=== PATIENT | female | born 1960 | race Caucasian/White ===

== ENCOUNTER → 2017-06-07 | Outpatient (CLI) | payer MEDICARE, OTHER ==
[~2017-06-07] MED LIST: Clonazepam0.125 MG; GLIP10 PO; LISI20 PO; MONISTAT 744 GM TOP; Metformin HCl1000 MG PO; OMEPRAZOLE DR 20 MG
[2017-06-09 12:29] LABS: HPV Genotype 16 Not Detected (NOTDET); HPV Genotype 18 Not Detected (NOTDET)
[2017-06-16 11:49] LABS: HPV High Risk Other Not Detected (NOTDET)
== END | disposition home or self-care (01) ==
LOC: PLD 13:04
PROVIDERS: Obstetrics & Gynecology Gynecology
DX: D07.1 Carcinoma in situ of vulva (principal)
CPT/HCPCS: 87624; 88142; 88305

== ENCOUNTER → 2017-12-18 | Outpatient (CLI) | payer MEDICARE ==
[2017-12-20 15:08] LABS: HPV 16 Negative (Negative); HPV 18 Negative (Negative); HPV OTHER HR TYPES Negative (Negative)
== END | disposition home or self-care (01) ==
LOC: LAB 19:07 → LAB SHORT 19:07
PROVIDERS: Obstetrics & Gynecology Gynecology
DX: Z12.72 Encounter for screening for malignant neoplasm of vagina (principal)
CPT/HCPCS: 87624; G0123

== ENCOUNTER → 2019-02-04 | Outpatient (CLI) | payer MEDICARE, OTHER ==
[2019-02-06 15:07] LABS: HPV 16 Negative (Negative); HPV 18 Negative (Negative); HPV OTHER HR TYPES Negative (Negative)
== END | disposition home or self-care (01) ==
LOC: LAB SHORT 19:14 → LAB 19:14
PROVIDERS: Obstetrics & Gynecology Gynecology
DX: Z12.72 Encounter for screening for malignant neoplasm of vagina (principal)
CPT/HCPCS: 87624; G0123

== ENCOUNTER → 2019-05-21 | Outpatient (CLI) | payer MEDICARE, OTHER ==
[2019-05-23 23:06] LABS: CHLAMYDIA TRACHOMATIS, NAA Negative (Negative); NEISSERIA GONORRHOEAE, NAA Negative (Negative)
== END | disposition home or self-care (01) ==
LOC: LAB EV 13:43 → LAB SHORT 13:43
PROVIDERS: Physician Assistant
DX: R10.2 Pelvic and perineal pain (principal)
CPT/HCPCS: 87070; 87106; 87205; 87491; 87591

== ENCOUNTER → 2019-08-15 | Outpatient (CLI) | payer MEDICARE, OTHER | END | disposition home or self-care (01) | LOC: LAB 19:39 → LAB SHORT 19:39 | DX: R22.42 Localized swelling, mass and lump, left lower limb (principal) | CPT/HCPCS: 84550 ==

== ENCOUNTER 2022-04-02 17:42 | Inpatient (IN) | payer OTHER, MEDICARE ==
[~2022-04-02] VITALS: Ht 167.6 cm; Wt 83.2 kg
[~2022-04-02 17:42] MED LIST changes: +OMEP20ER PO; -OMEPRAZOLE DR 20 MG
[2022-04-02 19:54] LABS: BASOPHILS ABSOLUTE AUTO 0.04 K/mm3 (0.00-0.23); BASOPHILS PERCENT AUTO 1 % (0-2); EOSINOPHILS ABSOLUTE AUTO 0.05 K/mm3 (0.00-0.68); EOSINOPHILS PERCENT AUTO 1 % (0-6); Hematocrit 31.2 % (33.0-51.0); Hemoglobin 10.8 g/dL (11.5-16.0); IMMATURE GRAN ABSOLUTE AUTO 0.03 K/mm3 (0.00-0.10); IMMATURE GRAN PERCENT AUTO 0 % (0-1); LYMPHOCYTES ABSOLUTE AUTO 1.02 K/mm3 (0.84-5.20); LYMPHOCYTES PERCENT AUTO 13 % (21-46); MONOCYTES ABSOLUTE AUTO 0.42 K/mm3 (0.16-1.47); MONOCYTES PERCENT AUTO 6 % (4-13); Mean Corpuscular HGB 31.9 pg (26.0-34.0); Mean Corpuscular HGB Conc 34.6 g/dL (31.5-36.5); Mean Corpuscular Volume 92 fL (80-100); Mean Platelet Volume 11.6 fL (9.1-12.4); NEUTROPHILS ABSOLUTE AUTO 6.08 K/mm3 (1.96-9.15); NEUTROPHILS PERCENT AUTO 80 % (41-73); Platelet Count 199 K/mm3 (150-400); RDW Standard Deviation 43.3 fL (35.1-46.3); Red Blood Cell Count 3.39 M/mm3 (3.80-5.20); White Blood Cell Count 7.64 K/mm3 (4.00-11.30)
[2022-04-02 20:03] LABS: Source, Urine Foley catheter
[2022-04-02 20:08] LABS: International Normalized Ratio 0.98; Prothrombin Time Results 10.3 Sec (9.7-11.5)
[2022-04-02 20:10] LABS: Bilirubin, Urine Neg (Neg); Blood, Urine Neg (Neg); Glucose Qualitative, Urine 4+ (Neg); Ketones, Urine Neg (Neg); Leukocyte Esterase, Urine Neg (Neg); Nitrite, Urine Neg (Neg); Protein, Urine Neg (Neg); Specific Gravity, Urine 1.015 (1.003-1.022); Urobilinogen, Urine NORM (Normal)
[2022-04-02 20:22] LABS: Albumin, Blood 3.2 g/dL (3.4-5.0); Albumin/Globulin Ratio 1.1 (0.8-1.8); Bilirubin, Total 0.3 mg/dL (0.1-1.0); Bun/Creatinine Ratio 20.9 (12.0-20.0); Calcium, Blood 8.9 mg/dL (8.5-10.1); Creatinine, Blood 0.86 mg/dL (0.40-1.00); Potassium, Blood 4.7 mmol/L (3.5-5.5); Total Protein, Blood 6.2 g/dL (6.4-8.2)
[2022-04-02 20:22] LABS: Appearance, Urine Clear (Clear); Color, Urine Pale Yellow (P-Yellow)
--- NOTE | 2022-04-02 21:27 | NUR ---
ADMIT PT ARRIVED 2054 4 PER SLIDE TO BED. ADMITTED FOR R HIP FX. 04/08 PAIN IN HIP RAIDIATING TO KNEE, INFORMED MD & HE ORDERED FENTANYL. ORIENTED TO CALL LIGHT & RM
[2022-04-03 05:28] LABS: BASOPHILS ABSOLUTE AUTO 0.03 K/mm3 (0.00-0.23); BASOPHILS PERCENT AUTO 0 % (0-2); EOSINOPHILS ABSOLUTE AUTO 0.01 K/mm3 (0.00-0.68); EOSINOPHILS PERCENT AUTO 0 % (0-6); Hematocrit 29.2 % (33.0-51.0); Hemoglobin 9.8 g/dL (11.5-16.0); IMMATURE GRAN ABSOLUTE AUTO 0.02 K/mm3 (0.00-0.10); IMMATURE GRAN PERCENT AUTO 0 % (0-1); LYMPHOCYTES ABSOLUTE AUTO 2.03 K/mm3 (0.84-5.20); LYMPHOCYTES PERCENT AUTO 27 % (21-46); MONOCYTES ABSOLUTE AUTO 0.69 K/mm3 (0.16-1.47); MONOCYTES PERCENT AUTO 9 % (4-13); Mean Corpuscular HGB 31.1 pg (26.0-34.0); Mean Corpuscular HGB Conc 33.6 g/dL (31.5-36.5); Mean Corpuscular Volume 93 fL (80-100); NEUTROPHILS ABSOLUTE AUTO 4.78 K/mm3 (1.96-9.15); NEUTROPHILS PERCENT AUTO 63 % (41-73); Platelet Count 181 K/mm3 (150-400); RDW Coefficient Variation 13.2 % (11.7-14.2); RDW Standard Deviation 44.1 fL (35.1-46.3); Red Blood Cell Count 3.15 M/mm3 (3.80-5.20); White Blood Cell Count 7.56 K/mm3 (4.00-11.30)
[2022-04-03 05:44] LABS: Albumin, Blood 2.7 g/dL (3.4-5.0); Albumin/Globulin Ratio 0.9 (0.8-1.8); Bilirubin, Total 0.2 mg/dL (0.1-1.0); Bun/Creatinine Ratio 20.1 (12.0-20.0); Calcium, Blood 8.3 mg/dL (8.5-10.1); Creatinine, Blood 0.9 mg/dL (0.40-1.00); Globulin, Blood 2.9 g/dL (2.2-4.0); Potassium, Blood 4.4 mmol/L (3.5-5.5); Total Protein, Blood 5.6 g/dL (6.4-8.2)
--- NOTE | 2022-04-03 06:24 | NUR ---
SHIFT SUMMARY AOX4. PT IN EXCRUCIATING PAIN IN R HIP RAIDIATING TO R KNEE, STATES IT FEELS LIKE SPASMS OR THAT SOMEONE IS MOVING HER LEG WHEN ITS SITTING STILL. HAD DIFFICULTY CONTROLLING 10/[address] AYALA ORDERED 2.5 MG IV VALIUM & PAIN LEVEL DECREASED TO 7/10. R LEG EXTERNALLY ROTATED, SHORTER THEN L LEG, R FOOT COLD TO TOUCH, PT ABLE TO WIGGLE TOES. CALLED CONSULT TO [facility]. VSS. PT HAS BEEN NPO SINCE MIDNIGHT FOR POSSIBLE SURGERY. HS CBG @307, PROVIDED COVERAGE PER EMAR. DE JESUS PLACED IN ER, PATENT & DRAINING CLEAR YELLOW URINE. CALL LIGHT IN REACH & PT ABLE TO MAKE NEEDS KNOWN.
[2022-04-03 14:00] LABS: Influenza A, PCR NEGATIVE (NEGATIVE); Influenza B, PCR NEGATIVE (NEGATIVE); Resp Syncytial Virus, PCR NEGATIVE (NEGATIVE); SARS-Cov-2 (COVID-19) PCR, MMC NEGATIVE (NEGATIVE)
--- NOTE | 2022-04-03 14:00 | NUR ---
REACHED OUT TO PATIENTS PHARMACY TO REQUEST LIST OF HOME MEDICATIONS SINCE PT IS UNFAMILIAR WITH DOSAGES. REQUESTED FAX TO BE SENT.
--- NOTE | 2022-04-03 19:13 | NUR ---
SHIFT SUMMARY PLAN FOR SURGERY TOMORROW. PAIN HAS BEEN MANAGED WITH IV PAIN MEDICATION THIS SHIFT. PT HAS DECLINED REPOSITIONING THIS SHIFT BUT SHE IS ABLE TO DO SOME REPOSITIONING INDEPENDENTLY. VSS. WILL MONITOR UNTIL REPORT TO NOC RN.
--- NOTE | 2022-04-04 04:12 | NUR ---
SHIFT SUMMARY A/O X4- BEDREST THROUGHOUT SHIFT DUE TO R HIP FX, PULSE PALPABLE AND PT ABLE TO WIGGLE TOES IN RLE. PAIN MANAGED W/ PO PAIN MEDICATION THROUGHOUT THE SHIFT. VITAL SIGNS STABLE. TOLERATED PO INTAKE UNTIL 0000 AND HAS BEEN NPO PENDING SURGERY TODAY. NO REPORT OF N/V. PT RESTED WELL. PLEASANT AND COOPERATIVE W/ CARE, WILL CONTINUE TO MONITOR AND REPORT TO ONCOMING RN.
[2022-04-04 05:03] LABS: BASOPHILS ABSOLUTE AUTO 0.04 K/mm3 (0.00-0.23); BASOPHILS PERCENT AUTO 1 % (0-2); EOSINOPHILS ABSOLUTE AUTO 0.16 K/mm3 (0.00-0.68); EOSINOPHILS PERCENT AUTO 3 % (0-6); Hematocrit 30.6 % (33.0-51.0); Hemoglobin 10.5 g/dL (11.5-16.0); IMMATURE GRAN ABSOLUTE AUTO 0.02 K/mm3 (0.00-0.10); IMMATURE GRAN PERCENT AUTO 0 % (0-1); LYMPHOCYTES ABSOLUTE AUTO 1.77 K/mm3 (0.84-5.20); LYMPHOCYTES PERCENT AUTO 30 % (21-46); MONOCYTES ABSOLUTE AUTO 0.51 K/mm3 (0.16-1.47); MONOCYTES PERCENT AUTO 9 % (4-13); Mean Corpuscular HGB 32.3 pg (26.0-34.0); Mean Corpuscular HGB Conc 34.3 g/dL (31.5-36.5); Mean Corpuscular Volume 94 fL (80-100); Mean Platelet Volume 11.1 fL (9.1-12.4); NEUTROPHILS PERCENT AUTO 58 % (41-73); Platelet Count 156 K/mm3 (150-400); RDW Coefficient Variation 13.2 % (11.7-14.2); RDW Standard Deviation 45.2 fL (35.1-46.3); Red Blood Cell Count 3.25 M/mm3 (3.80-5.20)
[2022-04-04 05:24] LABS: Albumin, Blood 2.9 g/dL (3.4-5.0); Albumin/Globulin Ratio 0.9 (0.8-1.8); Bilirubin, Total 0.5 mg/dL (0.1-1.0); Bun/Creatinine Ratio 11.9 (12.0-20.0); Calcium, Blood 8.8 mg/dL (8.5-10.1); Creatinine, Blood 0.84 mg/dL (0.40-1.00); Globulin, Blood 3.2 g/dL (2.2-4.0); Magnesium, Blood 1.7 mg/dL (1.6-2.4); Potassium, Blood 3.9 mmol/L (3.5-5.5); Total Protein, Blood 6.1 g/dL (6.4-8.2)
--- NOTE | 2022-04-04 15:32 | NUR ---
WORKING WITH PT AT DEEP BREATHING AT TIMES ON 3L N/C BIOX BETWEEN 88% AND 92 AND 95 % RESP ARE E/U LUNGS CLEAR
--- NOTE | 2022-04-04 18:15 | NUR ---
SHIFT SUMMARY PT IS POD#0 FROM R HIP REPAIR WITH DR. PEÑA. PT IS DROWSY POST OP BUT WAKES WHEN SPOKEN TO. SHE IS ALERT AND ORIENTED. PRIOR TO SURGERY PT DECLINED REPOSITIONING EVEN WHEN PREMEDICATED, PT PROVIDED EDUCATION ABOUT RISK FOR PRESURE INJURIES. PAIN MANAGED WITH IV PAIN MEDICATION. PT IS FEARFUL OF MOVEMENT BUT RESPONDS WELL TO EDUCATION AND ENCOURAGEMENT. WILL MONITOR UNTIL REPORT TO NOC RN.
--- NOTE | 2022-04-04 18:23 | NUR ---
PT ARRIVED BACK TO THE ROOM AT APPROXIMATELY 1624. PT IS DROWSY BUT WAKES WHEN SPOKEN TO, PT ORIENTED. PT REPORTS PAIN AT 7/10. PT MAINTAINING SATURATIONS >95% ON 3L O2 VIA NC. S/O AT BEDSIDE.
[2022-04-04] MEDS ORDERED: GLIP10ER PO (19:27)
[2022-04-04] MEDS ORDERED: METF500C PO (19:29)
[2022-04-04] MEDS ORDERED: PIOG15 PO (19:37)
[2022-04-04] MEDS ORDERED: Crestor20 MG PO (19:38)
[2022-04-05 06:32] LABS: Hematocrit 26.6 % (33.0-51.0); Hemoglobin 9.3 g/dL (11.5-16.0)
[2022-04-05 07:02] LABS: Albumin, Blood 2.4 g/dL (3.4-5.0); Albumin/Globulin Ratio 0.8 (0.8-1.8); Bilirubin, Total 0.4 mg/dL (0.1-1.0); Bun/Creatinine Ratio 18.1 (12.0-20.0); Calcium, Blood 8.3 mg/dL (8.5-10.1); Creatinine, Blood 0.88 mg/dL (0.40-1.00); Potassium, Blood 4.6 mmol/L (3.5-5.5); Total Protein, Blood 5.4 g/dL (6.4-8.2)
--- NOTE | 2022-04-05 07:30 | NUR ---
DISTRIBUTION TECHNICIAN SUMMARY POD 0 FOR R HIP PINNING. PT HAS NOT WORKED WITH PHYSICAL THERAPY YET AND WAS NOT WANTINT TO GET OUT OF BED TONIGHT. ENCOURAGED PT TO REPOSITION IN BED AND PT WAS ABLE TO TURN SIDE TO SIDE WITH MINIMAL ASSIST, PT VERY ANXIOUS R/T PAIN BUT IMPROVED GREATLY THROUGH THE NIGHT AND PAIN HAS BEEN MANAGED WITH NORCO 1 TAB Q4H. VSS, WILL CONTINUE TO MONITOR.
--- NOTE | 2022-04-05 19:52 | NUR ---
DISCHARGE SUMMARY PT A&OX4, VSS/RA/CBGS AC/HS, YANIRA PO, AMB TTWB 1 PP MOD ASSIST TO CHAIR. DE JESUS PATENT & DRAINING YELLOW URINE. POD1 R HIP PIN - AQUACEL APPLIED BY SURGEON ALE. REPORT TO ONCOMING CHARLIE BUCHANAN.
--- NOTE | 2022-04-06 04:01 | NUR ---
SHIFT SUMMARY: POD 2 RIGHT HIP NAILING NO SIGNIFICANT CHANGES. SHE IS A&OX4 WITH ANXIETY ESPEICALLY WHEN IT COMES TO MOVEMENT OF THE RIGHT HIP. VERBAL ENCOURAGEMENT SEEMS TO HELP THE MOST AND CALMS HER DOWN. PAIN IS MANAGED WITH PO NORCO AND TORADOL. RIGHT HIP HAS AQUACEL ON AND IS C/D/I. SHE IS A 2 PERSON ASSIST WITH FWW AND GAIT BELT. PATIENT IS TOLERATING PO INTAKE. CAN MOVE FINGERS AND TOES WHEN ASKED. CALLS APPROPRIATELY. CALL LIGHT WITHIN REACH. THE PLAN IS TO CONTINUE PAIN MANAGEMENT AND TO WORK WITH PT/OT.
[2022-04-06 07:07] LABS: Hematocrit 24.8 % (33.0-51.0); Hemoglobin 8.6 g/dL (11.5-16.0); Mean Corpuscular HGB 31.6 pg (26.0-34.0); Mean Corpuscular HGB Conc 34.7 g/dL (31.5-36.5); Mean Corpuscular Volume 91 fL (80-100); Mean Platelet Volume 10.5 fL (9.1-12.4); Platelet Count 158 K/mm3 (150-400); RDW Coefficient Variation 12.8 % (11.7-14.2); RDW Standard Deviation 41.7 fL (35.1-46.3); Red Blood Cell Count 2.72 M/mm3 (3.80-5.20); White Blood Cell Count 5.52 K/mm3 (4.00-11.30)
[2022-04-06 07:33] LABS: Albumin, Blood 2.4 g/dL (3.4-5.0); Albumin/Globulin Ratio 0.8 (0.8-1.8); Bilirubin, Total 0.3 mg/dL (0.1-1.0); Bun/Creatinine Ratio 22.3 (12.0-20.0); Calcium, Blood 8.6 mg/dL (8.5-10.1); Creatinine, Blood 0.9 mg/dL (0.40-1.00); Globulin, Blood 2.9 g/dL (2.2-4.0); Potassium, Blood 4.1 mmol/L (3.5-5.5); Total Protein, Blood 5.3 g/dL (6.4-8.2)
[2022-04-06 11:26] LABS: Hematocrit 29.2 % (33.0-51.0); Hemoglobin 10.1 g/dL (11.5-16.0)
[2022-04-06 11:32] LABS: SARS-Cov-2 (COVID-19) PCR, MMC NEGATIVE (NEGATIVE)
--- NOTE | 2022-04-06 13:46 | NUR ---
REPORT PHONED TO GOPAL AT [facility]
--- NOTE | 2022-04-06 14:48 | NUR ---
[id number] DISCHARGED VIA WHEELCHAIR TO [facility]. PTS AT BEDSIDE
== END 2022-04-06 14:48 | DRG 482 ==
LOC: ER 17:42 → SURS 19:42
PROVIDERS: Emergency Medicine; Family Medicine; Hospitalist; Orthopaedic Surgery; ADMIT Internal Medicine
PROC: 0QS636Z Reposition Right Upper Femur with Intramedullary Internal Fixation Device, Percutaneous Approach (ICD-10-PCS; principal; 2022-04-04 13:30)
DX: S72.141A Displaced intertrochanteric fracture of right femur, initial encounter for closed fracture (principal); Z20.822 Contact with and (suspected) exposure to COVID-19; Z28.21 Immunization not carried out because of patient refusal; G35 Multiple sclerosis; D64.9 Anemia, unspecified; E11.9 Type 2 diabetes mellitus without complications; K21.9 Gastro-esophageal reflux disease without esophagitis; Z86.73 Personal history of transient ischemic attack (TIA), and cerebral infarction without residual deficits; Z98.1 Arthrodesis status; Z98.890 Other specified postprocedural states; Z79.84 Long term (current) use of oral hypoglycemic drugs; Z79.899 Other long term (current) drug therapy; W01.0XXA Fall on same level from slipping, tripping and stumbling without subsequent striking against object, initial encounter; Y92.59 Other trade areas as the place of occurrence of the external cause
CPT/HCPCS: 0241U; 36415; 51702; 72170; 73502; 73560-RT; 80053; 81003; 82947; 83735; 85014; 85018; 85025; 85027; 85610; 86850; 86900; 86901; 93005; 93010; 96374-59; 96375-59; 97110; 97116; 97162; 97166; 97530; 97535; 99285-25; A9270; C1713; C1769; J0690; J1100; J1170; J1650; J1815; J1885; J2250; J2270; J2370; J2405; J2704; J2710; J3010; J3360; J3480; J7030; J7120; U0004

== ENCOUNTER → 2022-05-09 | Outpatient (CLI) | payer MEDICARE, OTHER ==
[~2022-05-09] MED LIST changes: +Crestor20 MG PO; +GLIP10ER PO; +METF500C PO; +PIOG15 PO
[2022-05-09 21:12] LABS: Microalb/Creat Ratio UR, Rand 21.593 mg/g (0.000-30.000); Microalbumin, Random Urine 24.4 mg/L (0.000-20.000)
== END | disposition home or self-care (01) ==
LOC: EDSTATUS 10:46 → LAB SHORT 14:55
PROVIDERS: Physician Assistant
DX: E11.65 Type 2 diabetes mellitus with hyperglycemia (principal); R10.9 Unspecified abdominal pain
CPT/HCPCS: 82043; 82570; 87086

== ENCOUNTER → 2022-05-16 | Outpatient (CLI) | payer MEDICARE, OTHER | END | disposition home or self-care (01) | LOC: LAB HH 14:10 | DX: E11.65 Type 2 diabetes mellitus with hyperglycemia (principal) | CPT/HCPCS: 83036 ==

== ENCOUNTER → 2023-10-30 | Outpatient (CLI) | payer MEDICARE, OTHER ==
[2023-10-30 13:16] LABS: BASOPHILS ABSOLUTE AUTO 0.04 K/mm3 (0.00-0.23); BASOPHILS PERCENT AUTO 1 % (0-2); EOSINOPHILS ABSOLUTE AUTO 0.11 K/mm3 (0.00-0.68); EOSINOPHILS PERCENT AUTO 2 % (0-6); Hematocrit 33.2 % (33.0-51.0); Hemoglobin 11.1 g/dL (11.5-16.0); IMMATURE GRAN ABSOLUTE AUTO 0.01 K/mm3 (0.00-0.10); IMMATURE GRAN PERCENT AUTO 0 % (0-1); LYMPHOCYTES ABSOLUTE AUTO 1.75 K/mm3 (0.84-5.20); LYMPHOCYTES PERCENT AUTO 35 % (21-46); MONOCYTES ABSOLUTE AUTO 0.51 K/mm3 (0.16-1.47); MONOCYTES PERCENT AUTO 10 % (4-13); Mean Corpuscular HGB 32.4 pg (26.0-34.0); Mean Corpuscular HGB Conc 33.4 g/dL (31.5-36.5); Mean Corpuscular Volume 97 fL (80-100); Mean Platelet Volume 11.4 fL (9.1-12.4); NEUTROPHILS ABSOLUTE AUTO 2.54 K/mm3 (1.96-9.15); NEUTROPHILS PERCENT AUTO 51 % (41-73); Platelet Count 205 K/mm3 (150-400); RDW Coefficient Variation 13.5 % (11.7-14.2); RDW Standard Deviation 48.2 fL (35.1-46.3); Red Blood Cell Count 3.43 M/mm3 (3.80-5.20); White Blood Cell Count 4.96 K/mm3 (4.00-11.30)
[2023-10-30 14:34] LABS: Alanine Aminotransfer (ALT/SGP 20 U/L (12-78); Albumin, Blood 3.5 g/dL (3.4-5.0); Albumin/Globulin Ratio 1.1 (0.8-1.8); Alk Phos 40 U/L (50-136); Anion Gap 7 mmol/L (3-11); Aspartate Aminotrans (AST/SGOT 14 U/L (12-37); Bilirubin, Total 0.3 mg/dL (0.1-1.0); Blood Urea Nitrogen 24 mg/dL (8-24); Bun/Creatinine Ratio 20.9 (12.0-20.0); CO2, Blood 27 mmol/L (21-32); Calcium, Blood 9.5 mg/dL (8.5-10.1); Chloride, Blood 109 mmol/L (98-108); Cholesterol 136 mg/dL (50-200); Creatinine, Blood 1.15 mg/dL (0.40-1.00); Globulin, Blood 3.1 g/dL (2.2-4.0); Glomerular Filtration Rate 53 (60-); Glucose, Blood 146 mg/dL (70-99); HDL Cholesterol 69 mg/dL (>39); LDL/HDL RATIO 0.8; Low Density Lipoprotein Chol 53 mg/dL (0-110); Potassium, Blood 4.4 mmol/L (3.5-5.5); Sodium, Blood 139 mmol/L (136-145); Total Protein, Blood 6.6 g/dL (6.4-8.2); Triglycerides 68 mg/dL (30-160); Very Low Density Lipoprot Chol 13 mg/dL (6-32)
== END | disposition home or self-care (01) ==
LOC: LAB 11:29 → LAB SHORT 11:29
PROVIDERS: Physician Assistant
DX: Z51.81 Encounter for therapeutic drug level monitoring (principal); Z79.899 Other long term (current) drug therapy
CPT/HCPCS: 80053; 80061; 82306; 83036; 84443; 85025

== ENCOUNTER → 2023-11-19 | Outpatient (CLI) | payer MEDICARE, OTHER ==
[2023-11-19 14:11] LABS: Bun/Creatinine Ratio 11.2 (12.0-20.0); Calcium, Blood 9.3 mg/dL (8.5-10.1); Creatinine, Blood 0.98 mg/dL (0.40-1.00); Potassium, Blood 4.2 mmol/L (3.5-5.5)
== END | disposition home or self-care (01) ==
LOC: LAB 11:20 → LAB SHORT 11:20
PROVIDERS: Physician Assistant
DX: N28.9 Disorder of kidney and ureter, unspecified (principal)
CPT/HCPCS: 80048

== ENCOUNTER 2024-01-24 18:24 | Emergency (ER) | payer MEDICARE, OTHER ==
[~2024-01-24] VITALS: Ht 165.1 cm; Wt 83.9 kg
[2024-01-24 19:51] LABS: BASOPHILS ABSOLUTE AUTO 0.04 K/mm3 (0.00-0.23); BASOPHILS PERCENT AUTO 1 % (0-2); EOSINOPHILS ABSOLUTE AUTO 0.01 K/mm3 (0.00-0.68); EOSINOPHILS PERCENT AUTO 0 % (0-6); Hematocrit 37.2 % (33.0-51.0); Hemoglobin 12.6 g/dL (11.5-16.0); IMMATURE GRAN ABSOLUTE AUTO 0.01 K/mm3 (0.00-0.10); IMMATURE GRAN PERCENT AUTO 0 % (0-1); LYMPHOCYTES ABSOLUTE AUTO 1.31 K/mm3 (0.84-5.20); LYMPHOCYTES PERCENT AUTO 23 % (21-46); MONOCYTES ABSOLUTE AUTO 0.38 K/mm3 (0.16-1.47); MONOCYTES PERCENT AUTO 7 % (4-13); Mean Corpuscular HGB 32.1 pg (26.0-34.0); Mean Corpuscular HGB Conc 33.9 g/dL (31.5-36.5); Mean Corpuscular Volume 95 fL (80-100); Mean Platelet Volume 10.9 fL (9.1-12.4); NEUTROPHILS ABSOLUTE AUTO 3.97 K/mm3 (1.96-9.15); NEUTROPHILS PERCENT AUTO 69 % (41-73); Platelet Count 221 K/mm3 (150-400); RDW Coefficient Variation 13.4 % (11.7-14.2); RDW Standard Deviation 46.5 fL (35.1-46.3); Red Blood Cell Count 3.92 M/mm3 (3.80-5.20); White Blood Cell Count 5.72 K/mm3 (4.00-11.30)
[2024-01-24 20:09] LABS: Albumin, Blood 3.5 g/dL (3.4-5.0); Bilirubin, Total 0.4 mg/dL (0.1-1.0); Calcium, Blood 10.1 mg/dL (8.5-10.1); Creatinine, Blood 0.92 mg/dL (0.40-1.00); Globulin, Blood 3.6 g/dL (2.2-4.0); Potassium, Blood 4.3 mmol/L (3.5-5.5); Total Protein, Blood 7.1 g/dL (6.4-8.2)
[2024-01-24] MEDS ORDERED: FAMO10 (21:19)
[2024-01-24 21:47] LABS: Source, Urine Clean Catch
[2024-01-24 21:50] LABS: Bilirubin, Urine Neg (Neg); Blood, Urine 1+ (Neg); Glucose Qualitative, Urine Neg (Neg); Ketones, Urine Neg (Neg); Leukocyte Esterase, Urine 2+ (Neg); Nitrite, Urine Neg (Neg); Protein, Urine 2+ (Neg); Urobilinogen, Urine NORM (Normal)
[2024-01-24] MEDS ORDERED: Prochlorperazine Edisylate 10 mg Vial IV ONE (22:00)
[2024-01-24] MEDS ORDERED: NS 1,000 ML IV SCH (22:00)
[2024-01-24] MEDS ORDERED: DiphenhydrAMINE HCl 50 MG/ML 1ML Vial IV ONE (22:00)
[2024-01-24] MEDS ORDERED: Meclizine HCl 25 MG Tab PO ONE (22:05)
[2024-01-24 22:09] LABS: Appearance, Urine Hazy (Clear); Color, Urine Yellow (P-Yellow)
[2024-01-24 22:10] LABS: Bacteria Mod /hpf; Red Blood Cells, Urine 0-2 /hpf (0-2); Squamous Epithelial Cells Many /hpf (Few)
[2024-01-25] MEDS ORDERED: MECL25 PO (00:23)
[2024-01-25 00:32] VITALS: BP 153/71
== END 2024-01-25 00:37 | disposition home or self-care (01) ==
LOC: ER 18:24
PROVIDERS: Physician Assistant
DX: R42 Dizziness and giddiness (principal); R11.2 Nausea with vomiting, unspecified; E11.9 Type 2 diabetes mellitus without complications; Z79.84 Long term (current) use of oral hypoglycemic drugs; Z79.899 Other long term (current) drug therapy
CPT/HCPCS: 70450; 80053; 81001; 85025; 87086; 96361; 96374; 96375; 99285-25; A9270; J0780; J1200; J7030

== ENCOUNTER → 2024-05-07 | Outpatient (CLI) | payer MEDICARE, OTHER ==
[~2024-05-07] MED LIST changes: +FAMO10; +MECL25 PO
[2024-05-07 16:34] LABS: BASOPHILS ABSOLUTE AUTO 0.04 K/mm3 (0.00-0.23); BASOPHILS PERCENT AUTO 1 % (0-2); EOSINOPHILS ABSOLUTE AUTO 0.09 K/mm3 (0.00-0.68); EOSINOPHILS PERCENT AUTO 2 % (0-6); Hematocrit 32.4 % (33.0-51.0); Hemoglobin 10.9 g/dL (11.5-16.0); IMMATURE GRAN PERCENT AUTO 0 % (0-1); LYMPHOCYTES ABSOLUTE AUTO 1.38 K/mm3 (0.84-5.20); LYMPHOCYTES PERCENT AUTO 37 % (21-46); MONOCYTES ABSOLUTE AUTO 0.38 K/mm3 (0.16-1.47); MONOCYTES PERCENT AUTO 10 % (4-13); Mean Corpuscular HGB 32.7 pg (26.0-34.0); Mean Corpuscular HGB Conc 33.6 g/dL (31.5-36.5); Mean Corpuscular Volume 97 fL (80-100); Mean Platelet Volume 11.5 fL (9.1-12.4); NEUTROPHILS ABSOLUTE AUTO 1.83 K/mm3 (1.96-9.15); NEUTROPHILS PERCENT AUTO 49 % (41-73); Platelet Count 178 K/mm3 (150-400); Red Blood Cell Count 3.33 M/mm3 (3.80-5.20); White Blood Cell Count 3.72 K/mm3 (4.00-11.30)
[2024-05-07 17:25] LABS: Albumin, Blood 3.2 g/dL (3.4-5.0); Alk Phos 38 U/L (50-136); Anion Gap 7 mmol/L (3-11); Aspartate Aminotrans (AST/SGOT 14 U/L (12-37); Bilirubin, Total 0.5 mg/dL (0.1-1.0); Blood Urea Nitrogen 16 mg/dL (8-24); Bun/Creatinine Ratio 16.5 (12.0-20.0); CO2, Blood 25 mmol/L (21-32); Calcium, Blood 8.7 mg/dL (8.5-10.1); Chloride, Blood 110 mmol/L (98-108); Cholesterol 141 mg/dL (50-200); Creatinine, Blood 0.97 mg/dL (0.40-1.00); Globulin, Blood 3.2 g/dL (2.2-4.0); Glomerular Filtration Rate 65 (60-); Glucose, Blood 151 mg/dL (70-99); HDL Cholesterol 71 mg/dL (>39); LDL/HDL RATIO 0.8; Low Density Lipoprotein Chol 53 mg/dL (0-110); Potassium, Blood 4.4 mmol/L (3.5-5.5); Sodium, Blood 138 mmol/L (136-145); Total Protein, Blood 6.4 g/dL (6.4-8.2); Triglycerides 83 mg/dL (30-160); Very Low Density Lipoprot Chol 16 mg/dL (6-32)
[2024-05-07 17:27] LABS: Alanine Aminotransfer (ALT/SGP 21 U/L (12-78)
== END ==
LOC: LAB SHORT 15:02 → LAB 15:02
PROVIDERS: Nurse Practitioner Family
DX: E11.9 Type 2 diabetes mellitus without complications (principal); E55.9 Vitamin D deficiency, unspecified; I10 Essential (primary) hypertension
CPT/HCPCS: 80053; 80061; 82306; 83036; 85025

== ENCOUNTER → 2024-05-16 | Outpatient (CLI) | payer MEDICARE, OTHER ==
[2024-05-16 16:42] LABS: Percent Saturation 25.1 % (15.0-50.0)
== END | disposition home or self-care (01) ==
LOC: LAB SHORT 15:21 → LAB 15:21
PROVIDERS: Nurse Practitioner Family
DX: D64.9 Anemia, unspecified (principal)
CPT/HCPCS: 83540; 83550

== ENCOUNTER → 2024-07-07 | Outpatient (CLI) | payer MEDICARE, OTHER ==
[2024-07-09 11:22] LABS: HEPATITIS B SURFACE ANTIBODY <3.10 IU/L
[2024-07-09 13:12] LABS: HBV CORE ANTIBODIES,TOTAL Negative (Negative); HEPATITIS A ANTIBODIES, TOTAL Negative (Negative)
[2024-07-09 17:34] LABS: HEPATITIS B SURFACE ANTIGEN Negative (Negative)
== END ==
LOC: LAB SHORT 15:17 → LAB 15:17
PROVIDERS: Nurse Practitioner Family
DX: K76.0 Fatty (change of) liver, not elsewhere classified (principal)
CPT/HCPCS: 86704; 86708; 87340